=== PATIENT | female | born 1990 | race Caucasian/White ===

== ENCOUNTER 2021-04-23 13:25 | Inpatient (IN) | payer OTHER ==
[~2021-04-23] VITALS: Ht 167.6 cm; Wt 73.9 kg
[2021-04-23 15:19] LABS: HEMOGLOBIN 12.8 gm/dl (12.3-15.3); RED BLOOD COUNT 4.17 M/UL (4.00-5.10); WHITE BLOOD COUNT 8.4 K/UL (4.5-11.0)
[2021-04-23] MEDS ORDERED: IBUPROFEN800 MG PO (22:37)
[2021-04-23] MEDS ORDERED: COLACE100 MG PO (22:37)
[2021-04-23] MEDS ORDERED: HEMOCYTE324 MG PO (22:37)
== END 2021-04-25 00:26 | disposition home or self-care (01) | DRG 807 ==
LOC: GENOP 13:25 → OB 13:56
PROVIDERS: ADMIT Obstetrics & Gynecology
PROC: 10E0XZZ Delivery of Products of Conception, External Approach (ICD-10-PCS; principal; 2021-04-23)
PROC: 10H07YZ Insertion of Other Device into Products of Conception, Via Natural or Artificial Opening (ICD-10-PCS; 2021-04-23)
PROC: 10907ZC Drainage of Amniotic Fluid, Therapeutic from Products of Conception, Via Natural or Artificial Opening (ICD-10-PCS; 2021-04-23)
DX: O48.0 Post-term pregnancy (principal); Z37.0 Single live birth; O99.02 Anemia complicating childbirth; D64.9 Anemia, unspecified; Z3A.41 41 weeks gestation of pregnancy; G71.00 Muscular dystrophy, unspecified
CPT/HCPCS: 36415; 81001; 85014; 85018; 85025; 85461; 86850; J2590; J2790; J3010; U0002